=== PATIENT | male | born 1995 | race Caucasian/White ===

== ENCOUNTER 2025-08-03 12:09 | Emergency (ER) | payer OTHER, SELFPAY ==
[2025-08-03 12:37] VITALS: BP 141/84; PULSE 70; RESP 18; TEMP 36.7; O2SAT 100; BMI 30.2
--- NOTE | 2025-08-03 12:46 | ED.GENADULT ---
HPI - General Adult General Chief complaint: Skin/Abscess/Foreign Body Stated complaint: Rash/ Bumps All Over Body Time Seen by Provider: 08/03/25 13:17 History of Present Illness ED Provider: Nga Amaya NP HPI narrative: 29-year-old male with a history significant only for eczema presents to the ED for evaluation of a full body rash that is red but patchy, hive-like, and very itchy. The patient was seen by Dermatology yesterday. They believe this was related to eczema and prescribed him Zyrtec as well as a betamethasone cream topically. He was previously on antibiotics for what appeared to be a bilateral hand skin infection, but completed those. He called the dermatology office this morning as he woke up feeling as though the rash was all over the body, and very itchy, and they prescribed him a dose of oral prednisone. He took 6 tablets, 60 mg, prior to ER arrival. He was told by the pharmacist to come to the ED for assessment. His girlfriend is at bedside, who reports that she has HSV. She also reports that his brother had HSP. He has never been diagnosed with this himself. He denies any joint aches or pains, denies any purple discoloration of the rash, no abdominal pain or nausea. No vomiting, blood in the stool. No flank pain. They have noted that they have tried new hand soaps, which they believe started the irritation. He denies any fever, chills or recent illnesses. No chest pain or pressure, shortness of breath or difficulty with breathing. No airway inflammation or irritation. No angioedema. No painful or difficulty swallowing. Related Data Previous Rx's ?Medication ?Instructions ?Recorded prednisone 10 mg tablets in a dose 10 mg PO DIRECTED #48 ea 08/03/25 pack Allergies Allergy/AdvReac Type Severity Reaction Status Date / Time cat dander Allergy Runny Nose Verified 08/03/25 12:40 Review of Systems Review of Systems: ROS is otherwise negative unless mentioned in HPI. PMFSH Social History Social History Advance Directives: No Advance Directives Information Provided: Yes Physical Exam ED Exam Exam: Nursing notes and vital signs reviewed. Constitutional: Well-appearing, NAD. Alert. Oriented X3. Eyes: EOMI. ENT: Pharynx normal. Neck: Normal inspection. Neck supple. CVS: Normal heart rate and rhythm. Pulses normal. Respiratory: No respiratory distress. Breath sounds normal. Abdomen: Soft, nontender, nondistended. Skin: Skin warm and dry. Normal skin color. Wide-spread, full-body rash that are hive-like, reddened in color. No patches, no pustules. Patient is itching. Extremities: No lower extremity edema. Neuro: Oriented X 3. No motor deficit. Vital Signs: Vital Signs - 24 hr 08/03/25 15:10 Temperature 98 F Pulse Rate 82 Respiratory Rate 16 Blood Pressure 135/73 Pulse Oximetry 98 Oxygen Delivery Method Room Air BMI result Body Mass Index 30.2 Course Course Course Narrative: RME: 29-year-old male presents to ED for generalized allergic hives rash. Patient states allergic to cats. Patient denies any shortness of breath. Patient to be brought back. Medications Administered Discontinued Medications Generic Name Dose Route Start Last Admin Trade Name Freq PRN Reason Stop Dose Admin Diphenhydramine HCl 25 mg 08/03/25 13:27 08/03/25 13:36 Diphenhydramine Hcl 50 Mg/Ml Vial IVPUSH 08/03/25 13:28 25 mg ONCE ONE Administration Famotidine 20 mg 08/03/25 13:27 08/03/25 13:36 Famotidine 20 Mg Tablet PO 08/03/25 13:28 20 mg ONCE ONE Administration Sodium Chloride 1,000 mls @ 999 mls/hr 08/03/25 13:27 08/03/25 14:31 Ns IV 08/03/25 14:27 Infused .Q1H1M ONE Infusion Medical Decision Making Medical Decision Making [facility] Narrative: Upon my assessment he is actively itching the areas. Reports feeling very itchy specifically in the abdomen, but there is a rash throughout the entire body. The rash has been present, but he feels it is more itchy today. They believe this started with hand soaps, causing a rash to the hands initially. He took 60 mg of prednisone prior to ER arrival here. We will give this a little bit of time to work, but also administer a fluid bolus, as well as Pepcid, and IV Benadryl. He has been followed/seen outpatient with Dermatology, who believes this is all related to eczema. His girlfriend is at bedside, and has concern for HSV. There is no genital lesions and no genital rash. There was no lesions in the mouth. I do not suspect this. She is also concern for HSP. Reports that his brother had this at a young age. The patient himself never had this. I also do not suspect this, the rash is not bruise like, it is not purple, nor is it raised. It appears like hives. It is also throughout the entire body and not only on the buttocks and legs. He has no joint pain, belly pain or nausea. However, we will obtain basic lab to assess kidney function. We will also obtain a viral swab, as this may be related to a viral illness. Will reassess. If prednisone does not seem to be helping, will administer a small dose of decadron IVP. I have no concern for his airway as their is no angioedema, the uvula is not enlarged. There is no wheezing throughout the lung lazcano. This is not anaphylaxis. 3:15 PM-- On reassessment the rash has significantly improved. He feels much better after the Pepcid, Benadryl, and fluid bolus. There is no indication for additional workup while in the ED. However, I am going to discharge the patient with an extended taper of prednisone. I am doing this in hopes that he will not have any rebound reaction or rash. He is agreeable to take the full course of the steroid as prescribed. He also we will continue follow up with Dermatology, as well as an loss mitigation specialist outpatient. If he develops any worsening complaints at any time, or feels difficulty with breathing or pain in his chest with (or without) the rash, he knows to return back to the ED immediately. His viral panel is currently pending. I plan to contact him via phone with the results only if they are positive. Differential Diagnosis Differential Diagnoses: The differential diagnosis associated with the presentation includes contact dermatitis, viral rash, HFM, HSP, HSV Admission/Observation Consideration of admission/observation: Escalation of care including admission/observation considered (Not indicated) Lab Data MDM Lab Attestation statement: I reviewed the patient's lab results. (Reassuring overall.) 08/03/25 13:31 08/03/25 13:31 Labs: Lab Results 08/03/25 08/03/25 Range/Units 13:31 15:00 WBC 9.5 (4.8-10.8) X10*3/uL RBC 5.10 (4.60-5.80) X10*6/uL Hgb 15.3 (14.0-18.0) g/dl Hct 45.6 (42.0-52.0) % MCV 89.4 (80.0-98.0) fL MCH 30.0 (27.0-33.0) pg MCHC 33.6 (31.0-36.0) g/dl RDW 12.7 (11.0-16.0) % Plt Count 302 (160-400) X10*3/uL MPV 9.9 (9.4-12.4) fL Immature Gran % (Auto) 0.2 (0.0-0.4) % Neut % (Auto) 77.6 H (45-73) % Lymph % (Auto) 13.6 L (20-40) % Angelina % (Auto) 3.6 (2-11) % Eos % (Auto) 4.7 H (0-4) % Baso % (Auto) 0.3 (0-2) % Lymph # (Auto) 1.3 (1.2-4.9) X10*3/uL Angelina # (Auto) 0.3 (0.1-1.2) X10*3/uL Eos # (Auto) 0.5 H (0.0-0.4) X10*3/uL Baso # (Auto) 0.0 (0.0-0.2) X10*3/uL Abs Immat Gran (auto) 0.02 (0.00-0.03) X10*3/uL Absolute Neuts (auto) 7.4 (2.0-8.3) x10*3/uL Absolute Nucleated RBC 0.000 (0.0-0.012) X10*3/uL Nucleated RBC % (auto) 0.0 (0.0-0.2) /100WBC Sodium 140 (135-145) mmol/L Potassium 4.1 (3.3-5.1) mmol/L Chloride 108 (96-108) mmol/L Carbon Dioxide 25 (22-29) mmol/L Anion Gap 11 L (12-20) BUN 7 L (9-16) mg/dL Creatinine 0.74 (0.5-1.4) mg/dL Estim Creat Clear Calc 179.5 Estimated GFR > 60 Random Glucose 94 (60-115) mg/dL Calcium 9.4 (8.4-10.2) mg/dL Influenza Type A (PCR) NEGATIVE (Negative) Influenza Type B (PCR) NEGATIVE (Negative) RSV RNA Qual (PCR) NEGATIVE (Negative) SARS-CoV-2 RNA (RT-PCR) NEGATIVE (Negative) Independent Historian Clinical information obtained from an independent historian. History obtained from or confirmed by: Spouse External Record Review External record reviewed: Outside ED record Prescription Management I considered prescription management with: Antiviral and Antibiotic Not indicated. Chronic Conditions Patient?s care impacted by: Other (Eczema) Social Determinants Patient?s care significantly limited by Social Determinants of Health including: Problems related to primary support group Discharge Plan Discharge Clinical Impression: Dermatitis Patient Disposition: Home, Self-Care Instructions: Dermatitis (ED) Additional Instructions: As we discussed, it appears you have an allergic/contact dermatitis, some kind of rash that is either from something you were ingesting/eating, or something topically touching your skin that is irritating your skin and creating hives. Please see your follow up care outpatient with Dermatology and senior label specialist. In the ER today we gave you some Benadryl IV, as well as IV fluids, and famotidine. Your rash upon reassessment appears much better. Please take the prescribed steroid taper over the FULL course. Abrupt stopping of this medication may create a rebound rash, or a rash that redevelops after stopping the medication abruptly. Please take the full course of the medication in the entirety. Preferably take it in the morning. With any new, worsening complaints, return back to the ED for additional assessment Prescriptions: New prednisone 10 mg tablets,dose pack 10 mg PO DIRECTED Qty: 48 0RF Rx Instructions: see taper instructions Referrals: Roseann Mcgraw NP [Primary Care Provider, Internal Medicine] Discharge Date/Time: 08/03/25 15:22 Print Language: Greek
[2025-08-03 13:36] LABS: MANUAL DIFF FLAG NO
[2025-08-03 13:37] LABS: Hematocrit 45.6 % (42.0-52.0); Hemoglobin 15.3 g/dl (14.0-18.0); Imm Gran Abs Auto 0.02 X10*3/uL (0.00-0.03); Imm Gran Pct Auto 0.2 % (0.0-0.4); Lymphocytes Absolute Auto 1.3 X10*3/uL (1.2-4.9); Mean Corpuscular HGB Conc 33.6 g/dl (31.0-36.0); Mean Corpuscular Hemoglobin 30.0 pg (27.0-33.0); Mean Corpuscular Volume 89.4 fL (80.0-98.0); NRBC Abs Auto 0.000 X10*3/uL (0.0-0.012); NRBC Pct Auto 0.0 /100WBC (0.0-0.2); Platelet Count 302 X10*3/uL (160-400); Red Blood Count 5.10 X10*6/uL (4.60-5.80); White Blood Count 9.5 X10*3/uL (4.8-10.8)
[2025-08-03 13:51] LABS: Anion Gap 11 (12-20); Blood Urea Nitrogen 7 mg/dL (9-16); Calcium 9.4 mg/dL (8.4-10.2); Carbon Dioxide 25 mmol/L (22-29); Chloride 108 mmol/L (96-108); Creatinine Clr Calc Pharmacy 179.5; Estimated Glomerular Filt Rate > 60; Potassium 4.1 mmol/L (3.3-5.1); Sodium 140 mmol/L (135-145)
[2025-08-03 15:10] VITALS: BP 135/73; PULSE 82; RESP 16; TEMP 36.6; O2SAT 98
[2025-08-03 15:46] LABS: Resp Syncy Virus RNA Qual PCR NEGATIVE (Negative); SARS COV2 PCR INHOUSE NEGATIVE (Negative)
== END 2025-08-03 15:22 | disposition home or self-care (01) ==
PROVIDERS: Nurse Practitioner; Emergency Provider Emergency Medicine; PCP Nurse Practitioner Family
DX: L30.9 Dermatitis, unspecified (principal); R21 Rash and other nonspecific skin eruption; Z03.818 Encounter for observation for suspected exposure to other biological agents ruled out
CPT/HCPCS: 80048; 85025; 87637; 96361; 96374; 99283; 99284; J1200